=== PATIENT | female | born 1995 | race Two or more races ===

== ENCOUNTER 2018-11-22 18:28 | Emergency (ER) | payer OTHER ==
[~2018-11-22] VITALS: Ht 160 cm; Wt 59.0 kg
[2018-11-23] MEDS ORDERED: ANUSOL-HC25 MG RECTAL (00:32)
[2018-11-23] MEDS ORDERED: OBSTETRIX DHA1 EACH PO (00:32)
== END 2018-11-23 02:50 | disposition home or self-care (01) ==
LOC: ER 18:28
DX: O26.892 Other specified pregnancy related conditions, second trimester (principal); K64.8 Other hemorrhoids; Z34.82 Encounter for supervision of other normal pregnancy, second trimester